=== PATIENT | female | born 1960 | race Caucasian/White ===

== ENCOUNTER 2024-06-04 10:00 | Observation (INO) | payer OTHER ==
[2024-06-04 10:42] LABS: Absolute Basophils 0.1 K/uL (0-0.5); Absolute Eosinophils 0.1 K/uL (0-0.5); Absolute Lymphocytes (CBC) 1.4 K/uL (0.7-4.9); Absolute Monocytes 0.6 K/uL (0.1-1.3); Absolute Neutrophil 7.4 K/uL (1.8-8.0); Basophils % 0.6 % (0-1.3); Hematocrit 37.9 % (36.0-45.0); Hemoglobin 12.9 g/dL (12.0-15.0); Lymphocytes % 14.3 % (15.3-44.8); MCH 30.5 pg (27.0-35.0); MCHC 34.1 g/dL (32.0-36.0); MCV 89.6 fL (80-100); MPV 8.5 fL (7.6-11.3); Monocytes % 6.4 % (3.3-12.3); Neutrophils % 77.7 % (41.7-73.7); Nucleated Red Blood Cells % 0.1 % (0-0); Platelets 313 thou/uL (152-406); RBC Red Blood Cell Count 4.22 M/uL (3.86-4.86); Red Cell Distribution Width 14.4 % (12.1-15.2)
[2024-06-04 10:43] LABS: PT Prothrombin Time 12.3 SECONDS (9.4-12.5); Protime INR 1.1
[2024-06-04 11:02] LABS: ALT/SGPT 19 U/L (13-56); AST/SGOT 13 U/L (15-37); Albumin 3.4 g/dL (3.4-5.0); Albumin/Globulin Ratio 0.9 (1.1-1.8); Alkaline Phosphatase 163 U/L (45-117); Anion Gap 5.7 mEq/L (5.0-15.0); BUN Blood Urea Nitrogen 9 mg/dL (7-18); Bicarbonate 31 mEq/L (21-32); Bilirubin Direct < 0.2 mg/dL (0-0.2); Bilirubin Indirect, Calculated 0.2 mg/dL (0.2-0.8); Bilirubin Total 0.4 mg/dL (0.2-1.0); Globulin 3.6 g/dL (2.3-3.5); Glomerular Filtration Rate 82 ml/min (=/>90); Glucose Level 91 mg/dL (74-106); NT PRO-BNP 71 pg/mL (<125); Potassium 3.7 mEq/L (3.5-5.1); Sodium Level 137 mEq/L (136-145); Troponin High Sensitivity < 3.0 pg/mL (<58.9)
[2024-06-04] MEDS ORDERED: ASPIRIN 81 MG CHEWABLE TABLET ONE (11:11)
--- NOTE | 2024-06-04 12:08 | RAD REPORT ---
EXAMINATION: ONE VIEW CHEST XR CLINICAL INDICATION: Female, 63 years old.,CHEST PAIN TECHNIQUE: Frontal chest projection is submitted. Examination is limited by patient positioning and t echnique. COMPARISON: No prior exam. FINDINGS: The lungs are well inflated and clear. No pneumothorax or sizable effusion. The heart is normal in s ize. Mediastinal contours are unremarkable. IMPRESSION: No acute intrathoracic abnormalities.
--- NOTE | 2024-06-04 12:28 | EDPHYS ---
Physician Documentation [facility] Name: Livia Ramirez Age: 63 yrs Sex: Female : 1960 Arrival Date: 06/04/2024 Time: 10:00 Bed 19 Private MD: ED Physician Antoine Park HPI: 06/04 10:23 This 63 yrs old Female presents to ER via Ambulatory with complaints of Pain, Dizziness.sp3 10:23 63-year-old female with history of CAD with stent placed 12 years ago in [place], sp3 hypertension, hyperlipidemia now presents to the ED with chief complaint left-sided chest pain radiating to her left arm. She denies any shortness of breath, headache, back pain, abdominal pain, vomiting, diarrhea, syncope, near syncope, prolonged immobilization, prior DVT or PE, known sick contacts, travel history, or any other signs or symptoms on ROS at this time. Pain has been there for 3 months with the last 2 weeks being progressively worse and last night yielding the worst pain she has had leading her to the ED this morning.. Historical: - Allergies: 10:11 PENICILLINS; iw - PMHx: 10:11 Diverticulitis; Hypertensive disorder; Hypercholesterolemia; iw - PSHx: 10:11 colon resection; tubal; cardiac stent; iw - Immunization history:: Adult Immunizations not up to date. - Infectious Disease History:: Denies. - Social history:: Smoking status: Patient reports the use of cigarette tobacco products, smokes one pack cigarettes per day. ROS: 10:24 Constitutional: Negative for fever, chills, and weight loss, Eyes: Negative for injury, sp3 pain, redness, and discharge, ENT: Negative for injury, pain, and discharge, Neck: Negative for injury, pain, and swelling, Respiratory: Negative for shortness of breath, cough, wheezing, and pleuritic chest pain, Abdomen/GI: Negative for abdominal pain, nausea, vomiting, diarrhea, and constipation, Back: Negative for injury and pain, MS/Extremity: Negative for injury and deformity, Skin: Negative for injury, rash, and discoloration, Neuro: Negative for headache, weakness, numbness, tingling, and seizure, Psych: Negative for depression, anxiety, suicide ideation, homicidal ideation, and hallucinations, Allergy/Immunology: Negative for hives, rash, and allergies, Endocrine: Negative for neck swelling, polydipsia, polyuria, polyphagia, and marked weight changes, Hematologic/Lymphatic: Negative for swollen nodes, abnormal bleeding, and unusual bruising, 10:24 All other systems are negative, Exam: 10:24 Constitutional: This is a well developed, well nourished patient who is awake, alert, sp3 and in no acute distress. Head/Face: Normocephalic, atraumatic. Eyes: Pupils equal round and reactive to light, extra-ocular motions intact. Lids and lashes normal. Conjunctiva and sclera are non-icteric and not injected. Cornea within normal limits. Periorbital areas with no swelling, redness, or edema. ENT: Nares patent. No nasal discharge, no septal abnormalities noted. External auditory canals are clear. Oropharynx with no redness, swelling, or masses, exudates, or evidence of obstruction, uvula midline. Mucous membranes moist. Neck: Trachea midline, no thyromegaly or masses palpated, and no cervical lymphadenopathy. Supple, full range of motion without nuchal rigidity, or vertebral point tenderness. No Meningismus. Chest/axilla: Normal chest wall appearance and motion. Nontender with no deformity. No lesions are appreciated. Cardiovascular: Regular rate and rhythm with a normal S1 and S2. No gallops, murmurs, or rubs. Normal PMI, no JVD. No pulse deficits. Respiratory: Lungs have equal breath sounds bilaterally, clear to auscultation and percussion. No rales, rhonchi or wheezes noted. No increased work of breathing, no retractions or nasal flaring. Abdomen/GI: Soft, non-tender, with normal bowel sounds. No distension or tympany. No guarding or rebound. No evidence of tenderness throughout. Back: No spinal tenderness. No costovertebral tenderness. Full range of motion. Skin: Warm, dry with normal turgor. Normal color with no rashes, no lesions, and no evidence of cellulitis. MS/ Extremity: Pulses equal, no cyanosis. Neurovascular intact. Full, normal range of motion. Neuro: Awake and alert, GCS 15, oriented to person, place, time, and situation. Cranial nerves II-XII grossly intact. Motor strength 5/5 in all extremities. Sensory grossly intact. Cerebellar exam normal. Normal gait. Psych: Awake, alert, with orientation to person, place and time. Behavior, mood, and affect are within normal limits. 10:24 ECG was reviewed by the Attending Physician. EKG demonstrates normal sinus rhythm at 71 bpm with normal intervals, normal QRS, normal axis, nonspecific ST/T changes without evidence of acute ischemia. Vital Signs: 10:09 BP 139 / 100; Pulse 76; Resp 16; Temp 97.1; Pulse Ox 98% on R/A; Weight 74.84 kg; iw Height 5 ft. 5 in. ; Pain 5/10; 11:30 BP 154 / 67; Pulse 98; Resp 18; Pulse Ox 93% ; bp 13:00 BP 155 / 87; Pulse 72; Resp 16; Temp 98.9; Pulse Ox 97% ; bp 10:09 Body Mass Index 27.46 (74.84 kg, 165.1 cm) iw 10:09 Pain Scale: Adult iw MDM: 10:12 Medical Screening Exam initiated sp3 10:25 Data reviewed: vital signs, nurses notes, lab test result(s), EKG, radiologic studies. sp3 ED course: 63-year-old female with PMH above now with left-sided chest pain. Pain is mild in nature currently. Differential diagnosis includes acute coronary syndrome, musculoskeletal pain, pleurisy, other pulmonary process, esophagitis/GI pathology, among others. I am not highly suspicious for thoracic aortic pathology, PE, sepsis, shock or any other critical process. Workup will include EKG, chest x-ray and routine labs including troponin. Disposition pending workup and patient course with second troponin and discharge versus 23-hour observation given medical history with cardiology consult.. 12:26 ED course: Initial workup negative. Given age, risk factors and prior cardiac history, sp3 we will place in observation.. 06/04 10:16 Order name: Basic Metabolic Panel; Complete Time: :18 sp3 06/04 10:16 Order name: CBC with Diff; Complete Time: : sp3 06/04 10:16 Order name: LFT's; Complete Time: 11:18 sp3 06/04 10:16 Order name: Magnesium; Complete Time: 11:18 sp3 06/04 10:16 Order name: NT PRO-BNP; Complete Time: : sp3 06/04 10:16 Order name: PT-INR; Complete Time: :18 sp3 06/04 10:16 Order name: Troponin HS; Complete Time: 11:18 sp3 06/04 13:00 Order name: DD; Complete Time: 13:23 la1 06/04 10:16 Order name: XRAY Chest (1 view); Complete Time: 12:15 sp3 06/04 10:16 Order name: Cardiac monitoring; Complete Time: 10:41 sp3 06/04 10:16 Order name: EKG - Nurse/Tech; Complete Time: 10:25 sp3 06/04 10:16 Order name: IV Saline Lock; Complete Time: 10:39 sp3 06/04 10:16 Order name: Labs collected and sent; Complete Time: 10:39 sp3 06/04 10:16 Order name: O2 Per Protocol; Complete Time: 10:41 sp3 06/04 10:16 Order name: O2 Sat Monitoring; Complete Time: 10:41 sp3 Administered Medications: 10:45 Drug: Aspirin PO Chewable Tablet 324 mg PO once; 81 mg tablets x 4 Route: PO; bp 13:36 Follow up: Response: No adverse reaction bp Disposition Summary: 06/04/24 12:27 Hospitalization Ordered Notes: Hospitalization Status: Observation sp3 Provider: Raf Candelario sp3 Location: Telemetry/MedSurg (observation) sp3 Condition: Stable sp3 Problem: an acute exacerbation sp3 Symptoms: have worsened sp3 Bed/Room Type: Standard sp3 Room Assignment: 205(06/04/24 13:11) eb Diagnosis - Chest pain, unspecified sp3 Forms: - Medication Reconciliation Form sp3 - SBAR form sp3 - Leadership Thank You Letter sp3 Signatures: Dispatcher [employer] EDAlethea Montgomery, RN Blaze Chisholm RN RN Viviana Dietrich Setul, MD MD sp3 Corrections: (The following items were deleted from the chart) 10:17 10:17 BASIC METABOLIC PANEL+C.LAB.BRZ ordered. EDMS EDMS 10:17 10:17 CBC+H.LAB.BRZ ordered. EDMS EDMS 10:17 10:17 HEPATIC FUNCTION+C.LAB.BRZ ordered. EDMS EDMS 10:17 10:17 MAGNESIUM+C.LAB.BRZ ordered. EDMS EDMS 10:17 10:17 PROBNP+C.LAB.BRZ ordered. EDMS EDMS 10:17 10:17 PROTIME (+INR)+COAG.LAB.BRZ ordered. EDMS EDMS 10:17 10:17 Troponin High Sensitivity+C.LAB.BRZ ordered. EDMS EDMS 10:17 10:17 Chest Single View+RAD.RAD.BRZ ordered. EDMS EDMS 13:11 12:27 sp3 eb
--- NOTE | 2024-06-04 12:28 | ER ---
Nurse's Notes [facility] Name: Livia Ramirez Age: 63 yrs Sex: Female : 1960 Arrival Date: 06/04/2024 Time: 10:00 Bed 19 Private MD: Diagnosis: Chest pain, unspecified Presentation: 06/04 10:09 Chief complaint: Patient states: last few weeks has been having left sided chest pain , iw has been getting dizzy to the point that she is falling over. Coronavirus screen: At this time, the client does not indicate any symptoms associated with coronavirus-19. Ebola Screen: No symptoms or risks identified at this time. Initial Sepsis Screen: Does the patient meet any 2 criteria? No. Patient's initial sepsis screen is negative. Does the patient have a suspected source of infection? No. Patient's initial sepsis screen is negative. Risk Assessment: Do you want to hurt yourself or someone else? Patient reports no desire to harm self or others. Onset of symptoms was April 2024. 10:09 Method Of Arrival: Ambulatory iw 10:09 Acuity: JAMI 3 iw Triage Assessment: 10:15 General: Appears in no apparent distress. Behavior is cooperative, appropriate for age, bp anxious. Pain: Complains of pain in chest. EENT: No deficits noted. Neuro: No deficits noted. Cardiovascular: Reports chest pain. Respiratory: No deficits noted. GI: No signs and/or symptoms were reported involving the gastrointestinal system. : No signs and/or symptoms were reported regarding the genitourinary system. Derm: No deficits noted. Musculoskeletal: No deficits noted. Historical: - Allergies: 10:11 PENICILLINS; iw - PMHx: 10:11 Diverticulitis; Hypertensive disorder; Hypercholesterolemia; iw - PSHx: 10:11 colon resection; tubal; cardiac stent; iw - Immunization history:: Adult Immunizations not up to date. - Infectious Disease History:: Denies. - Social history:: Smoking status: Patient reports the use of cigarette tobacco products, smokes one pack cigarettes per day. Screenin:15 [facility] ED Fall Risk Assessment (Adult) History of falling in the last 3 months, bp including since admission No falls in past 3 months (0 pts) Confusion or Disorientation No (0 pts) Intoxicated or Sedated No (0 pts) Impaired Gait No (0 pts) Mobility Assist Device Used No (0 pt) Altered Elimination No (0 pt) Score/Fall Risk Level 0 - 2 = Low Risk. Abuse screen: Denies threats or abuse. Nutritional screening: No deficits noted. Tuberculosis screening: No symptoms or risk factors identified. Assessment: 10:15 General: Appears in no apparent distress. Behavior is cooperative, appropriate for age, bp anxious. Pain: Complains of pain in chest. 11:31 Reassessment: Patient appears in no apparent distress at this time. Patient is alert, bp oriented x 3, equal unlabored respirations, skin warm/dry/pink. 13:35 Reassessment: REPORT FAXED TO RM 205. bp 14:28 Reassessment: PT LIDIA WITH DIRECTOR OF PARTNER MARKETING. bp Vital Signs: 10:09 BP 139 / 100; Pulse 76; Resp 16; Temp 97.1; Pulse Ox 98% on R/A; Weight 74.84 kg; iw Height 5 ft. 5 in. ; Pain 5/10; 11:30 BP 154 / 67; Pulse 98; Resp 18; Pulse Ox 93% ; bp 13:00 BP 155 / 87; Pulse 72; Resp 16; Temp 98.9; Pulse Ox 97% ; bp 10:09 Body Mass Index 27.46 (74.84 kg, 165.1 cm) iw 10:09 Pain Scale: Adult iw ED Course: 10:07 Patient arrived in ED. mg5 10:08 Antoine Park MD is Attending Physician. sp3 10:11 Triage completed. iw 10:12 Arm band placed on. iw 10:13 Blaze Rebolledo, RN is Primary Nurse. bp 10:15 Patient has correct armband on for positive identification. bp 10:25 EKG done, by ED staff, reviewed by Antoine Park MD. iw 10:38 Initial lab(s) drawn, by nm, sent to lab. Inserted saline lock: 20 gauge in left cc6 antecubital area, using aseptic technique. Blood collected. Flushed with 10 mL NS. 10:39 Basic Metabolic Panel Sent. cc6 10:39 CBC with Diff Sent. cc6 10:39 LFT's Sent. cc6 10:39 Magnesium Sent. cc6 10:39 NT PRO-BNP Sent. cc6 10:39 PT-INR Sent. cc6 10:39 Troponin HS Sent. cc6 10:46 XRAY Chest (1 view) In Process Unspecified. EDMS 12:27 Raf Candelario MD is Hospitalizing Provider. sp3 12:54 1254 CM met with at the bedside in the ED exam room. Patient identified by lisa name and . Demographic sheet confirmed. PCP Dr Driscoll in [place]. MPOA none. Patient states she lives alone in a a single story home, and that prior to admission, she performs ADLs independently. DME includes a nebulizer. No HH, no home oxygen or other medical services at this time. Patient's plan is to return home upon discharge and states that her vehicle is at the hospital and she plans on driving herself home. CM team will continue to follow and coordinate care. 13:33 No provider procedures requiring assistance completed. Patient admitted, IV remains in bp place. Administered Medications: 10:45 Drug: Aspirin PO Chewable Tablet 324 mg PO once; 81 mg tablets x 4 Route: PO; bp 13:36 Follow up: Response: No adverse reaction bp Medication: 10:15 VIS not applicable for this client. bp Outcome: 12:27 Decision to Hospitalize by Provider. sp3 14:28 Admitted to Business Education Teacher accompanied by nurse, bp 14:28 Condition: stable 14:28 Instructed on the need for admit, 14:29 Patient left the ED. bp Signatures: Dispatcher [employer] EDMS Alethea Burns, Blaze Chisholm RN, RN RN Antoine Reddy MD MD sp3 Bhupendra Debora mg5 Katja Douglas cc6 Tereza Morin RN RN ane
[2024-06-04] MEDS ORDERED: ONDANSETRON 4 MG/2 ML VIAL IV PRN (13:15)
[2024-06-04] MEDS ORDERED: MORPHINE 2 MG/ML SYR IV PRN (13:15)
[2024-06-04] MEDS: NA CHLORIDE 0.9% 500 ML ONE (14:49)
[2024-06-04] MEDS ORDERED: LIDOCAINE 1% 20 ML MDV ONE (15:45)
[2024-06-04] MEDS ORDERED: HEPARIN 10,000 UNIT/10 ML VIAL IV ONE (15:45)
[2024-06-04] MEDS ORDERED: HEPA 1000U/500MLS 2,000 UNIT/1,000 ML BAG IV ONE (15:45)
[2024-06-04] MEDS ORDERED: MIDAZOLAM HCL 2 MG/2 ML INJ ONE (15:46)
[2024-06-04] MEDS ORDERED: ATROPINE SULF 1 MG/10 ML SYR IV ONE (15:46)
[2024-06-04] MEDS ORDERED: VERAPAMIL HCL 10 MG/4 ML VIAL IV ONE (15:46)
[2024-06-04] MEDS ORDERED: HEPARIN 5000 UNIT/ML 1 ML VIAL ONE (15:46)
[2024-06-04] MEDS ORDERED: TICAGRELOR 90 MG TABLET PO ONE (15:46)
[2024-06-04] MEDS ORDERED: CLOPIDOGREL 75 MG TABLET ONE (15:46)
[2024-06-04] MEDS ORDERED: ASPIRIN 325 MG TAB ONE (15:47)
[2024-06-04] MEDS ORDERED: FENTANYL CITR 100 MCG/2 ML ONE (15:47)
--- NOTE | 2024-06-04 17:10 | P.HP ---
Certification for Inpatient Patient admitted to: Observation With expected LOS: <2 Midnights Patient will require the following post-hospital care: None Practitioner: I am a practitioner with admitting privileges, knowledge of patient current condition, hospital course, and medical plan of care. Services: Services provided to patient in accordance with Admission requirements found in Title 42 Section 412.3 of the Code of Federal Regulations Patient History Date of Service: 06/04/24 Reason for admission: Chest pain History of Present Illness: 63-year-old female with history of hypertension, hyperlipidemia, CAD with previous stent about 12 years ago presents to the emergency department with chief complaint of ongoing chest pain. She reports the pain has been ongoing for at least a few weeks now and associated with some dizziness. Patient was evaluated in the emergency department initial high-sensitivity troponin was negative EKG without STEMI criteria chest x-ray is negative for acute findings and age-adjusted D-dimer was negative. Patient with ongoing pain, was seen by cardiology in ED and plans to take her to [facility] today. Allergies Penicillins Allergy (Verified 06/04/24 13:15) Rash - Past Medical/Surgical History -: Hypertension -: Hyperlipidemia -: Diverticulitis -: Colectomy -: Tubal ligation Psychosocial/ Personal History: Lives at home alone - Social History Smoking Status: Current every day smoker Counseled patient to stop smoking for: less than 10 minutes Smoking therapy provided: Yes Alcohol use: No CD- Drugs: No Caffeine use: Yes Place of Residence: Home Review of Systems 10-point ROS is otherwise unremarkable Cardiovascular: Chest Pain Physical Examination - Vital Signs Temperature: 98.9 F Blood Pressure: 155/87 Pulse: 72 Respirations: 16 - Physical Exam General: Alert, In no apparent distress, Oriented x3 HEENT: Atraumatic, PERRLA, EOMI Neck: Supple, 2+ carotid pulse no bruit, No LAD Respiratory: Clear to auscultation bilaterally, Normal air movement Cardiovascular: Regular rate/rhythm, Normal S1 S2 Gastrointestinal: Normal bowel sounds, No tenderness Musculoskeletal: No tenderness Integumentary: No rashes Neurological: Normal gait, Normal speech, Normal strength at 5/5 x4 extr, Normal tone - Studies Laboratory Data (last 24 hrs) 06/04/24 06/04/24 06/04/24 10:32 10:32 10:32 WBC 9.50 Hgb 12.9 Hct 37.9 Plt Count 313 PT 12.3 INR 1.10 Sodium 137 Potassium 3.7 BUN 9 Creatinine 0.80 Glucose 91 Magnesium 2.0 Total Bilirubin 0.4 AST 13 L ALT 19 Alkaline Phosphatase 163 H Assessment and Plan - Plan Assessment: Chest pain rule out ACShistory of CAD Hypertension Hyperlipidemia History of diverticulitis Plan: Chest pain rule out ACShistory of CAD Seen by cardiology who recommends coronary angiogram Down in [facility] now Await further input from cardiology Hypertension Hyperlipidemia Continue home medications when verified History of diverticulitis DVT PPX: Lovenox Code status: Full Discharge Plan: Home Plan to discharge in: 24 Hours - Advance Directives Does patient have a Living Will: No Does patient have a Durable POA for Healthcare: No - Code Status/Comfort Care Code Status Assessed: Yes (Full code) Critical Care: No Time Spent Managing Pts Care (In Minutes): 65
[2024-06-04] MEDS: ATORVASTATIN 40 MG TAB PO SCH (20:36)
[2024-06-04 20:48] VITALS: BMI 26.6
--- NOTE | 2024-06-04 21:06 | CON ---
Date of Consultation: 06/04/2024 Reason For Consultation: Chest pain. History Of Present Illness: A 63-year-old female, history of coronary artery disease, status post PC I of LAD 12 years ago, comes in feeling chest pain, pressure like, radiates to the shoulder and neck as well as feeling dizzy. This has been going on and off for the past 2 weeks. It is getting progre ssively worse and the chest pain radiates to the shoulder, neck, and to the left arm. Also, she is a n active smoker about 1 pack per day. She has been smoking all her life. Denies having nausea, vomi ting, or diaphoresis and no other symptoms. Past Medical History: Coronary artery disease, hypertension, dyslipidemia. Medications: Refer reconciliation sheet for detailed list. Allergies: PENICILLIN. Family History: No premature coronary artery disease or cancer. Social History: She is active smoker. Does not drink or use any drugs. Review of Systems: All systems reviewed and they are negative except as mentioned in HPI. Physical Examination: Vital Signs: Reviewed. Head and Neck: Pupils are equal, reactive to light. Intact eye movements. No JVD. No cervical lym phadenopathy. Neck supple. Thyroid is not enlarged. Lungs: Clear to auscultation bilaterally. No rhonchi, wheezing, or crackles. No accessory muscle u se. Heart: Regular rate and rhythm. No extra sounds. Abdomen: Soft, nontender. Bowel sounds positive. No organomegaly. No masses or hernia. No rigidi ty or rebound. Extremities: No edema, clubbing, cyanosis. Intact pulses. Skin: No rash. No nodules. Neurologic: Alert, awake, oriented x3. No acute focal deficits appreciated. Lymph Nodes: No cervical or axillary lymphadenopathy. Investigations: BUN 9, creatinine 0.80, hemoglobin is 12.9. Assessment/recommendation: 1.Chest pain, typical features. Known coronary artery disease. Last stent to the LAD 12 years ago and she is an active smoker, very high risk factor, symptoms suggestive of unstable angina. Keep n.p .o. Plan for coronary angiogram today and start her on baby aspirin. 2.Dyslipidemia. Continue Lipitor 40 mg q.h.s. 3.Hypertension. Resume all her home medication. Adjust further as needed. 4.Smoking, history of COPD. She was counseled to quit. 5.Chronic obstructive pulmonary disease. She appears to be stable at the present time. Case discus sed with the emergency room physician and primary hospitalist. /SHA Voice ID: [id number] Report ID: [id number]
--- NOTE | 2024-06-05 03:19 | OP ---
Date of Procedure: 06/04/2024 Surgeon: JOLYNN CARVER Procedure Performed: 1.Selective coronary angiogram. 2.Left heart catheterization. Indication: Unstable angina with known history of coronary artery disease. Access: Right radial artery 6-Latvian, closed with TR band. Complications: None. Bleeding: Less than 50 mL. Anesthesia: Total sedation time is 45 minutes, used fentanyl and Versed. Description Of Procedure: After risks, benefits, and alternatives were explained, the patient agreed to procedure and signed informed consent. The patient was brought into cardiac catheterization [facility], prepped and draped in sterile fashion. Then, I accessed right radial artery using pediatric micropuncture kit and ultrasound guidance and placed 6-Latvian Slender sheath and took 5-Latvian Lincoln 4 catheter over J-wire into the aortic root across the aortic valve, measured the LVEDP. Pullback no t record any gradient and then engaged the left main and took standard views and then the RCA, took s tandard views and then the catheter was removed, sheath was removed and placed TR band for closure wi th good hemostasis. Findings: 1.Left main is normal. 2.LAD: Widely patent proximal LAD stent. Mid LAD has focal 40% stenosis. Diagonal branch is katy l. Rest of the LAD is normal. 3.Left circumflex: It is large and codominant and normal. Normal OM branches. 4.RCA: Large and codominant and normal. Normal PLB and PDA. 5.Elevated LVEDP at 20 mmHg. Conclusion: 1.Widely patent LAD stent with moderate mid LAD stenosis. 2.Elevated LVEDP. Recommendation: Diuretics and search for other causes of chest pain. SR/MODL Voice ID: [id number] Report ID: [id number]
[2024-06-05 05:14] LABS: Absolute Basophils 0.1 K/uL (0-0.5); Absolute Eosinophils 0.2 K/uL (0-0.5); Absolute Monocytes 0.6 K/uL (0.1-1.3); Absolute Neutrophil 5.8 K/uL (1.8-8.0); Basophils % 0.6 % (0-1.3); Hematocrit 35.9 % (36.0-45.0); Hemoglobin 12.2 g/dL (12.0-15.0); Lymphocytes % 23.2 % (15.3-44.8); MCH 30.8 pg (27.0-35.0); MCHC 34.1 g/dL (32.0-36.0); MCV 90.4 fL (80-100); MPV 8.5 fL (7.6-11.3); Monocytes % 7.1 % (3.3-12.3); Neutrophils % 67.1 % (41.7-73.7); Nucleated Red Blood Cells % 0.1 % (0-0); Platelets 288 thou/uL (152-406); RBC Red Blood Cell Count 3.97 M/uL (3.86-4.86); Red Cell Distribution Width 14.5 % (12.1-15.2)
[2024-06-05 05:25] VITALS: O2SAT 95
[2024-06-05 05:40] LABS: Anion Gap 3.9 mEq/L (5.0-15.0); Potassium 3.9 mEq/L (3.5-5.1); Troponin High Sensitivity 29.7 pg/mL (<58.9)
[2024-06-05 08:19] VITALS: BP 149/65; TEMP 98.7
[2024-06-05] MEDS ORDERED: ENOXAPARIN 40 MG/0.4 ML SQ SCH (09:00)
[2024-06-05] MEDS ORDERED: POTASSIUM CL SA 10 MEQ TAB PO ONE (09:00)
[2024-06-05] MEDS ORDERED: ASPIRIN EC 81 MG TAB PO SCH (09:00)
--- NOTE | 2024-06-05 14:05 | P.DS ---
Admission Date: 06/04/24 Discharge Date: 06/05/24 Disposition: ROUTINE DISCHARGE Discharge Condition: GOOD Reason for Admission: Chest pain Brief History of Present Illness: 63-year-old female with history of hypertension, hyperlipidemia, CAD with previous stent about 12 years ago presents to the emergency department with chief complaint of ongoing chest pain. She reports the pain has been ongoing for at least a few weeks now and associated with some dizziness. Patient was evaluated in the emergency department initial high-sensitivity troponin was negative EKG without STEMI criteria chest x-ray is negative for acute findings and age-adjusted D-dimer was negative. Patient with ongoing pain, was seen by cardiology in ED and plans to take her to [facility] today. Hospital Course: Assessment: Chest pain rule out ACShistory of CAD Hypertension Hyperlipidemia History of diverticulitis Patient was admitted to the hospital for chest pain, it was concerning for unstable angina. She was evaluated by cardiology who performed a coronary angiogram on 06/04/2024. Coronary angiogram results below Findings: 1. Left main is normal. 2. LAD: Widely patent proximal LAD stent. Mid LAD has focal 40% stenosis. Diagonal branch is normal. Rest of the LAD is normal. 3. Left circumflex: It is large and codominant and normal. Normal OM branches. 4. RCA: Large and codominant and normal. Normal PLB and PDA. 5. Elevated LVEDP at 20 mmHg. Conclusion: 1. Widely patent LAD stent with moderate mid LAD stenosis. 2. Elevated LVEDP Patient did well overnight, denies new or worsening symtpoms. Patient will need to follow up with PCP and cardiology outpatient. Continue home meds at discharge. Vital Signs/Physical Exam: Temp Pulse Resp BP Pulse Ox 98.7 F 72 16 149/65 H 94 06/05/24 08:00 06/05/24 08:00 06/05/24 08:00 06/05/24 08:00 06/05/24 08:00 General: Alert, In no apparent distress, Oriented x3 HEENT: Atraumatic, PERRLA, EOMI Neck: Supple, JVD not distended Respiratory: Clear to auscultation bilaterally, Normal air movement Cardiovascular: Regular rate/rhythm, Normal S1 S2 Gastrointestinal: Normal bowel sounds, No tenderness Musculoskeletal: No tenderness Integumentary: No rashes Neurological: Normal speech, Normal tone Laboratory Data at Discharge: WBC 8.70 thou/uL (4.3-10.9) 06/05/24 04:53 Hgb 12.2 g/dL (12.0-15.0) 06/05/24 04:53 Hct 35.9 % (36.0-45.0) L 06/05/24 04:53 Plt Count 288 thou/uL (152-406) 06/05/24 04:53 PT 12.3 SECONDS (9.4-12.5) 06/04/24 10:32 INR 1.10 06/04/24 10:32 Sodium 139 mEq/L (136-145) 06/05/24 04:53 Potassium 3.9 mEq/L (3.5-5.1) 06/05/24 04:53 BUN 12 mg/dL (7-18) 06/05/24 04:53 Creatinine 0.84 mg/dL (0.55-1.02) 06/05/24 04:53 Glucose 99 mg/dL (74-106) 06/05/24 04:53 Magnesium 2.0 mg/dL (1.6-2.4) 06/04/24 10:32 Total Bilirubin 0.4 mg/dL (0.2-1.0) 06/04/24 10:32 AST 13 U/L (15-37) L 06/04/24 10:32 ALT 19 U/L (13-56) 06/04/24 10:32 Alkaline Phosphatase 163 U/L (45-117) H 06/04/24 10:32 Triglycerides 109 mg/dL (<150) 06/05/24 04:53 Cholesterol 132 mg/dL (<200) 06/05/24 04:53 HDL Cholesterol 45 mg/dL (40-60) 06/05/24 04:53 Cholesterol/HDL Ratio 2.93 06/05/24 04:53 Home Medications: Aspirin [Aspirin EC 325 MG] 325 mg PO DAILY 06/04/24 Atorvastatin Calcium [Lipitor] 80 mg PO DAILY AFTER SUPPER 06/04/24 Losartan Potassium 80 mg PO DAILY AFTER SUPPER 06/04/24 clonazePAM [Clonazepam] 0.5 mg PO BID 06/04/24 Physician Discharge Instructions: Patient was admitted to the hospital for chest pain, it was concerning for unstable angina. She was evaluated by cardiology who performed a coronary angiogram on 06/04/2024. Coronary angiogram results below Findings: 1. Left main is normal. 2. LAD: Widely patent proximal LAD stent. Mid LAD has focal 40% stenosis. Diagonal branch is normal. Rest of the LAD is normal. 3. Left circumflex: It is large and codominant and normal. Normal OM branches. 4. RCA: Large and codominant and normal. Normal PLB and PDA. 5. Elevated LVEDP at 20 mmHg. Conclusion: 1. Widely patent LAD stent with moderate mid LAD stenosis. 2. Elevated LVEDP Patient did well overnight, denies new or worsening symtpoms. Patient will need to follow up with PCP and cardiology outpatient. Continue home meds at discharge. Diet: Regular Activity: Ad iwona Followup: Joby Miller MD [ACTIVE - CAN ADMIT] - 1-2 Weeks Aston Driscoll MD [Primary Care Provider] - 1 Week Time spent managing pt's care (in minutes): 36
== END 2024-06-05 11:13 | disposition home or self-care (01) ==
LOC: ER 10:00 → ERHOLD 13:00 → 2ND 14:19
PROVIDERS: ADMIT Hospitalist; ATTEND Hospitalist
PROC: 4A023N7 Measurement of Cardiac Sampling and Pressure, Left Heart, Percutaneous Approach (ICD-10-PCS; principal; 2024-06-04)
PROC: B2111ZZ Fluoroscopy of Multiple Coronary Arteries using Low Osmolar Contrast (ICD-10-PCS; 2024-06-04)
PROC: B2151ZZ Fluoroscopy of Left Heart using Low Osmolar Contrast (ICD-10-PCS; 2024-06-04)
DX: I25.110 Atherosclerotic heart disease of native coronary artery with unstable angina pectoris (principal); I10 Essential (primary) hypertension; E78.5 Hyperlipidemia, unspecified; J44.9 Chronic obstructive pulmonary disease, unspecified; K57.92 Diverticulitis of intestine, part unspecified, without perforation or abscess without bleeding; Z95.5 Presence of coronary angioplasty implant and graft; F17.210 Nicotine dependence, cigarettes, uncomplicated; Z71.6 Tobacco abuse counseling; Z88.0 Allergy status to penicillin; Z90.49 Acquired absence of other specified parts of digestive tract
CPT/HCPCS: 85025 ×2; 80048 ×2; 36415; 83735; 85610; 80061; 85379; 80076; 84484 ×3; 83880; 71045; 93458; 76937; 99285; C1893; Q9966; J1644; J2003; J2250; J3010; G0378 ×4; J7040; 99152; J0461